=== PATIENT | female | born 1960 ===

== ENCOUNTER 2016-06-14 16:47 | Emergency (ER) | payer SELFPAY ==
[~2016-06-14] VITALS: Ht 162.6 cm; Wt 70.0 kg
[2016-06-14 16:48] VITALS: BP 143/75; PULSE 97; RESP 16; TEMP 98.1; O2SAT 96
== END 2016-06-14 19:26 | disposition left against medical advice (07) ==
LOC: NED 16:47
DX: R20.2 Paresthesia of skin (principal); Z53.21 Procedure and treatment not carried out due to patient leaving prior to being seen by health care provider
CPT/HCPCS: 99281